=== PATIENT | female | born 1970 | race Caucasian/White ===

== ENCOUNTER → 2018-05-15 | Outpatient (CLI) | payer MEDICAID ==
--- NOTE | 2018-05-18 11:26 | MM ---
Reason for exam: screening (asymptomatic). Last mammogram was performed 5 years and 11 months ago. History: Patient is postmenopausal. Benign right mammotome panel of the right breast, July 01, 2012. Retro-pectoral silicone gel implants in both breasts, 2012. Right Breast Aspiration of the right breast, 2008. Took hormonal contraceptives for 3 months beginning at age 34. Physical Findings: A clinical breast exam by your physician is recommended on an annual basis and results should be correlated with mammographic findings. MG Screening Mammo Implant/CAD Bilateral CC, MLO, and ID view(s) were taken. Prior study comparison: June 19, 2012, [facility] DIGITAL RIGHT MAMMOGRAM w/CAD. June 17, 2012, bilateral digital screening mammo w/CAD. Finding: There is an equal density (isodense), indistinct round mass located 3 cm from the nipple in the upper outer quadrant, middle position of the left breast, may have peripheral calcifications. Bilateral implants. New finding since June 19, 2012 and June 17, 2012. ASSESSMENT: Incomplete: need additional imaging evaluation, BI-RAD 0 RECOMMENDATION: Special view mammogram of the left breast. If lesion persists on supplemental views, image directed ultrasound is recommended. [facility] will attempt to contact patient to return for supplemental views and ultrasound if indicated.
== END | disposition home or self-care (01) ==
LOC: RADMAMWWP 07:07
PROVIDERS: ATTEND Obstetrics & Gynecology
DX: Z12.31 Encounter for screening mammogram for malignant neoplasm of breast (principal); Z98.82 Breast implant status
CPT/HCPCS: 77067

== ENCOUNTER → 2018-05-19 | Outpatient (CLI) | payer MEDICAID ==
--- NOTE | 2018-05-19 11:37 | MM ---
Reason for exam: additional evaluation requested from abnormal screening. Last mammogram was performed less than 1 month ago. History: Patient is postmenopausal. Benign right mammotome panel of the right breast, July 01, 2012. Retro-pectoral silicone gel implants in both breasts, 2012. Right Breast Aspiration of the right breast, 2008. Took hormonal contraceptives for 3 months beginning at age 34. Physical Findings: Patient refused breast exam. MG Work Up Asaf W/Imp W/CAD L CC with magnification, ML with magnification, and ML view(s) were taken of the left breast. Prior study comparison: May 15, 2018, bilateral MG screening mammo implant/CAD. June 19, 2012, [facility] DIGITAL RIGHT MAMMOGRAM w/CAD. The breast tissue is heterogeneously dense. This may lower the sensitivity of mammography. Finding: There is a typically benign equal density (isodense), obscured round mass located 3 cm from the nipple in the upper outer quadrant, middle position of the left breast. This has the appearance of a calcifying sphere. Short term follow up recommended. This can be after implant removal. These results were verbally communicated with the patient and result sheet given to the patient on 05/19/18. ASSESSMENT: Probably benign, BI-RAD 3 RECOMMENDATION: Follow-up diagnostic mammogram of the left breast in 6 months.
== END | disposition home or self-care (01) ==
LOC: RADMAMWWP 10:00
PROVIDERS: ATTEND Obstetrics & Gynecology
DX: R92.8 Other abnormal and inconclusive findings on diagnostic imaging of breast (principal)
CPT/HCPCS: 77066

== ENCOUNTER 2018-06-21 01:26 | Emergency (ER) | payer MEDICAID ==
[2018-06-21] MEDS ORDERED: SODIUM CHLORIDE 0.9% 1,000 ML IV STA (01:31)
[2018-06-21 01:37] LABS: Glucose,Whole Blood 114 mg/dL (75-99)
[2018-06-21 01:42] VITALS: TEMP 98.8
--- NOTE | 2018-06-21 02:26 | CT ---
EXAMINATION TYPE: CT brain dale last DATE OF EXAM: 06/21/2018 COMPARISON: None HISTORY: fall CT DLP: 937.3 mGycm Automated exposure control for dose reduction was used. TECHNIQUE: CT scan of the head and cervical spine are performed without contrast. FINDINGS: There are a few scattered small foci of increased density in the right posterior frontal lobe. The largest measures 6 mm and consistent with focal parenchymal hemorrhage. There is no mass ef fect. There is no midline shift. Ventricles of normal size. There is some mucosal thickening in the e thmoid maxillary and sphenoid sinuses. The calvarium is intact. Cervical vertebra have normal alignment. There is mild spondylotic change in the cervical spine at C5 -6 C6-7. Facet joints are intact. Skull base is intact. There is no evidence of a fracture. IMPRESSION: Small areas of focal parenchymal hemorrhage in the right posterior frontal lobe appear acute. No mass effect. Sinusitis. Minor spondylotic changes in the cervical spine. No fracture.
--- NOTE | 2018-06-21 02:29 | XR ---
EXAMINATION TYPE: XR chest 1V portable DATE OF EXAM: 06/21/2018 COMPARISON: NONE HISTORY: Trauma chest pain TECHNIQUE: Single frontal view of the chest is obtained. FINDINGS: Heart and mediastinum are normal. Lungs are clear. Diaphragm is normal. There are chest le ads. Bony thorax is intact. IMPRESSION: Normal chest no pneumothorax.
--- NOTE | 2018-06-21 02:29 | CT ---
EXAMINATION TYPE: CT facial bones wo con DATE OF EXAM: 06/21/2018 COMPARISON: None HISTORY: fall CT DLP: 937.3 mGycm Automated exposure control for dose reduction was used. TECHNIQUE: CT scan of the sinuses is performed without contrast, axial images are obtained, coronal r eformatted images are also reviewed. FINDINGS: The mandibular ring is intact. The temporomandibular joints are intact. There is soft tissu e air anterior to the right maxilla. There is fracture of the anterior wall of the right maxillary si nus. There is fluid level in the right maxillary sinus. The nasal bone is intact. The temporal bones are intact. There is no evidence of a blowout fracture. The orbital margins are intact. There is some mucosal thickening in the ethmoid sinus. There is no evidence of retro-orbital mass. IMPRESSION: There is acute hemorrhage in the right maxillary sinus. There is similar probable acute t raumatic hemorrhage in the sphenoid and ethmoid sinus. There is nondisplaced fracture anterior and la teral wall of the right maxillary sinus. No evidence of blowout fracture.
--- NOTE | 2018-06-21 02:34 | XR ---
EXAMINATION TYPE: XR pelvis AP view DATE OF EXAM: 06/21/2018 COMPARISON: NONE HISTORY: Trauma TECHNIQUE: Single view FINDINGS: Pelvic ring is intact. Proximal most femurs and hip joints appear normal. Abdominal gas pat tern is fairly normal. IMPRESSION: No acute abnormality of the pelvis. No fracture seen. The results of this exam the chest x-ray the facial bone x-rays and the head CT scan and cervical spi ne CT scan were discussed with the ER physician at 2:30 AM.
[2018-06-21 02:35] LABS: Basophils % (A) 0 %; Eosinophils # (A) 0.1 k/uL (0-0.7); Eosinophils % (A) 1 %; HCT 40.5 % (34.0-46.0); HGB 13.2 gm/dL (11.4-16.0); Lymphocytes # (A) 1.1 k/uL (1.0-4.8); Lymphocytes % (A) 6 %; MCH 29.2 pg (25.0-35.0); MCHC 32.5 g/dL (31.0-37.0); MCV 89.6 fL (80.0-100.0); Monocytes % (A) 5 %; Neutrophils # (A) 16.1 k/uL (1.3-7.7); Neutrophils % (A) 87 %; Platelet Count 376 k/uL (150-450); RBC 4.52 m/uL (3.80-5.40); RDW 13.5 % (11.5-15.5); WBC 18.4 k/uL (3.8-10.6)
[2018-06-21 02:43] LABS: ALT 131 U/L (9-52); AST 134 U/L (14-36); Albumin 3.9 g/dL (3.5-5.0); Alcohol <10 mg/dL; Alkaline Phosphatase 187 U/L (38-126); Anion Gap 8 mmol/L; Blood Urea Nitrogen 8 mg/dL (7-17); Calcium 9.6 mg/dL (8.4-10.2); Carbon Dioxide 27 mmol/L (22-30); Chloride 104 mmol/L (98-107); Glucose 122 mg/dL (74-99); Potassium 4.1 mmol/L (3.5-5.1); Sodium 139 mmol/L (137-145); Total Bilirubin 0.4 mg/dL (0.2-1.3); Total Protein 6.9 g/dL (6.3-8.2)
--- NOTE | 2018-06-21 02:50 | ED ---
Fall HPI - General Chief Complaint: Fall Stated Complaint: Fall/Head Injury Time Seen by Provider: 06/21/18 01:30 Source: family, EMS Mode of arrival: EMS - History of Present Illness Initial Comments: Garry is a previously healthy 47-year-old female who is brought to the ED today via EMS for evaluation of headache injury and altered mental status. History is provided by EMS and the patient's as the patient is very confused. Per the patient has been the patient has been in her usual state of health, 2 weeks ago she had an elective breast implant removal surgery. The patient is usually naturopathic and opposed to taking medications, in an attempt to cleanse her body of anesthesia she is doing a cleanse which consists of drinking celery juice and eating apples. reports she's been doing well , this evening he heard a crash within the home, thinking that it was his dogs he got up to check on what it was. He found his facedown in their bathroom on the tile floor. He reports that she was moaning and noted that she has bleeding from her nose so he called 911. EMS reports that the patient has been agitated and bad of, she is able to speak clearly and state her name though she is very confused and not cooperative with exam. Patient provides no meaningful history. - Related Data Allergies Allergy/AdvReac Type Severity Reaction Status Date / Time No Known Allergies Allergy Verified 06/21/18 01:50 Review of Systems ROS Statement: Those systems with pertinent positive or pertinent negative responses have been documented in the HPI. Limitations: ROS unobtainable due to patients medical condition (Confusion) Past Medical History Past Medical History: No Reported History History of Any Multi-Drug Resistant Organisms: None Reported Additional Past Surgical History / Comment(s): Breast implant removal 05/2018 Smoking Status: Never smoker Past Alcohol Use History: None Reported Past Drug Use History: None Reported General Exam - General Exam Comments Initial Comments: GENERAL: Patient is well-developed and well-nourished. Patient is nontoxic and well-hydrated and is in no distress. HENT: Contusion of right periorbital region, dried blood in the naris TMs normal bilaterally no hemotympanum Cervical collar in place EYES: Pupils 4 mm and reactive bilaterally The sclera were anicteric and conjunctiva were pink and moist. PULMONARY: Unlabored respirations. Good breath sounds bilaterally. No audible rales rhonchi or wheezing was noted. CARDIOVASCULAR: There is a regular rate and rhythm without any murmurs gallops or rubs. ABDOMEN: Soft and nontender with normal bowel sounds. SKIN: Skin is clear with no lesions or rashes and otherwise unremarkable. Well-healing surgical incisions on bilateral breasts with BRYCE drains in place with serosanguineous drainage NEUROLOGIC: Patient resting with her eyes closed but wakes to verbal stimuli, oriented to person, able to identify that she is in a hospital, able to identify that it is May, confused about events leading to hospitalization Agitated and yelling at staff with any examination she is not cooperative Moving all extremities MUSCULOSKELETAL: Normal extremities with adequate strength and full range of motion. No lower extremity swelling or edema. No calf tenderness. LYMPHATICS: No significant lymphadenopathy is noted PSYCHIATRIC: Agitated Limitations: no limitations Limitations: altered mental status Course Vital Signs 06/21/18 01:31 Temperature 98.8 F Pulse Rate 101 H Respiratory 18 Rate Blood Pressure 101/58 O2 Sat by Pulse 100 Oximetry Medical Decision Making - Medical Decision Making The patient was seen and evaluated, history was obtained from EMS and This is a previously healthy 47-year-old female on no anticoagulant or antiplatelet agents who had a fall at home, it was unwitnessed and certain if it was syncopal or mechanical in nature Patient fell forward striking her face on a tile floor has been altered since that time On exam the patient is in a c-collar, she is agitated and not cooperating with exam. There is obvious trauma to the right face, dried blood in the nares, TMs normal no hemotympanum High suspicion for intracranial bleed Labs and imaging were ordered Computed tomography scan reveals a right frontal intraparenchymal hemorrhage measuring approximately 6 mm these results were discussed with Dr. Rickie Menjivar radiology confirms Computed tomography scan also reveals maxillary sinus fracture with free air in the surrounding tissue and blood in the sinuses Patient care was discussed with Dr Jones at [facility], due to their facility being at capacity and having no available ICU beds they recommended transfer to a trauma facility with available beds. Patient care was discussed with Dr. Lombardo at [facility] who accepts the transfer - Lab Data Result diagrams: 06/21/18 01:54 06/21/18 01:54 Lab Results 06/21/18 06/21/1818 Range/Units 01:33 01:54 01:54 WBC 18.4 H (3.8-10.6) k/uL RBC 4.52 (3.80-5.40) m/uL Hgb 13.2 (11.4-16.0) gm/dL Hct 40.5 (34.0-46.0) % MCV 89.6 (80.0-100.0) fL MCH 29.2 (25.0-35.0) pg MCHC 32.5 (31.0-37.0) g/dL RDW 13.5 (11.5-15.5) % Plt Count 376 (150-450) k/uL Neutrophils % 87 % Lymphocytes % 6 % Monocytes % 5 % Eosinophils % 1 % Basophils % 0 % Neutrophils # 16.1 H (1.3-7.7) k/uL Lymphocytes # 1.1 (1.0-4.8) k/uL Monocytes # 1.0 (0-1.0) k/uL Eosinophils # 0.1 (0-0.7) k/uL Basophils # 0.0 (0-0.2) k/uL Sodium 139 (137-145) mmol/L Potassium 4.1 (3.5-5.1) mmol/L Chloride 104 (98-107) mmol/L Carbon Dioxide 27 (22-30) mmol/L Anion Gap 8 mmol/L BUN 8 (7-17) mg/dL Creatinine 0.76 (0.52-1.04) mg/dL Est GFR (CKD-EPI)AfAm >90 (>60 ml/min/1.73 sqM) Est GFR (CKD-EPI)NonAf >90 (>60 ml/min/1.73 sqM) Glucose 122 H (74-99) mg/dL POC Glucose (mg/dL) 114 H (75-99) mg/dL POC Glu [employer] Developer ID Josr, Shayna Calcium 9.6 (8.4-10.2) mg/dL Total Bilirubin 0.4 (0.2-1.3) mg/dL AST 134 H (14-36) U/L ALT 131 H (9-52) U/L Alkaline Phosphatase 187 H (38-126) U/L Total Protein 6.9 (6.3-8.2) g/dL Albumin 3.9 (3.5-5.0) g/dL Serum Alcohol <10 mg/dL Disposition Clinical Impression: Fall, Traumatic intraparenchymal hemorrhage Disposition: OTHER INSTITUTION NOT DEFINED Condition: Serious Is patient prescribed a controlled substance at d/c from ED?: No Referrals: None,Stated [Primary Care Provider] - 1-2 days - Out of Hospital Transfer - Req. Specs Out of Hospital Transfer - Requested Specifics: Other Emergency Center ([facility])
[2018-06-21 02:52] LABS: INR 0.9 (<1.2); Prothrombin Time 9.7 sec (9.0-12.0)
[2018-06-21 02:55] LABS: Creatine Kinase 74 U/L (30-135)
[2018-06-21 03:06] LABS: Creatine Kinase MB 1.2 ng/mL (0.0-2.4); Troponin I <0.012 ng/mL (0.000-0.034)
[2018-06-21 03:09] VITALS: BP 114/58; PULSE 79; RESP 16
== END 2018-06-21 03:26 | disposition short-term general hospital (02) ==
LOC: EC 01:26
DX: S06.349A Traumatic hemorrhage of right cerebrum with loss of consciousness of unspecified duration, initial encounter (principal); S02.40CA Maxillary fracture, right side, initial encounter for closed fracture; S00.11XA Contusion of right eyelid and periocular area, initial encounter; R45.1 Restlessness and agitation; Z98.86 Personal history of breast implant removal; W01.198A Fall on same level from slipping, tripping and stumbling with subsequent striking against other object, initial encounter; Y92.002 Bathroom of unspecified non-institutional (private) residence as the place of occurrence of the external cause
CPT/HCPCS: 36415; 70450; 70486; 71045; 72125; 72170; 80053; 80320; 82550; 82553; 84484; 85025; 85610; 85730; 86850; 86900; 86901; 93005; 99285

== ENCOUNTER 2023-08-07 15:10 | Emergency (ER) | payer MEDICAID, OTHER ==
--- NOTE | 2023-08-07 15:26 | ED ---
General Adult HPI - General Stated complaint: back pain Time Seen by Provider: 08/07/23 15:20 Source: patient, RN notes reviewed Mode of arrival: ambulatory Limitations: no limitations - History of Present Illness Initial comments: 53-year-old female presents emergency department chief complaint of joint pain. Patient has rheumatoid arthritis. She states she started having issues with it over the last couple weeks after having a GI illness. She states she had no fevers or chills she states she normally is well-controlled but due to recent illnesses has aggravated. She does not see a firer locomotive does not any rheumatological medications. Patient states she saw her PCP who reported on NSAIDs. Patient states is not helping and she called back for further help and states that she was advised to come to emergency department. She states she prefers not to be placed on steroids. She states she normally does not take any medications she is well-controlled dietary with all of her conditions. - Related Data Previous Rx's Medication Instructions Recorded HYDROcodone/APAP 5-325MG [Mangham 5] 1 each PO Q6HR PRN #20 tab 08/07/23 Allergies Allergy/AdvReac Type Severity Reaction Status Date / Time No Known Allergies Allergy Verified 08/07/23 15:43 Review of Systems ROS Statement: Those systems with pertinent positive or pertinent negative responses have been documented in the HPI. ROS Other: All systems not noted in ROS Statement are negative. Past Medical History Past Medical History: No Reported History History of Any Multi-Drug Resistant Organisms: None Reported Additional Past Surgical History / Comment(s): Breast implant removal 05/2018 Past Alcohol Use History: None Reported Past Drug Use History: None Reported General Exam General appearance: alert, in no apparent distress Head exam: Present: atraumatic, normocephalic, normal inspection Eye exam: Present: normal appearance, PERRL, EOMI. Absent: scleral icterus, conjunctival injection, periorbital swelling ENT exam: Present: normal exam, normal oropharynx, mucous membranes moist Neck exam: Present: normal inspection, full ROM. Absent: tenderness, meningismus, lymphadenopathy Respiratory exam: Present: normal lung sounds bilaterally. Absent: respiratory distress, wheezes, rales, rhonchi, stridor Cardiovascular Exam: Present: regular rate, normal rhythm, normal heart sounds. Absent: systolic murmur, diastolic murmur, rubs, gallop, clicks GI/Abdominal exam: Present: soft, normal bowel sounds. Absent: distended, tenderness, guarding, rebound, rigid Extremities exam: Present: other (Hand deformities are noted, no erythematous joints) Back exam: Present: full ROM, tenderness Neurological exam: Present: alert, oriented X3, CN II-XII intact Course Vital Signs 08/07/23 15:41 Temperature 98 F Pulse Rate 80 Respiratory 18 Rate Blood Pressure 132/78 O2 Sat by Pulse 98 Oximetry Medical Decision Making - Medical Decision Making Was pt. sent in by a medical professional or institution (, YANELI, FRONT END DEVELOPER, urgent care, hospital, or custodial...) When possible be specific @ -No Did you speak to anyone other than the patient for history (EMS, parent, family, police, friend...)? What history was obtained from this source @ -No Did you review nursing and triage notes (agree or disagree)? Why? @ -I reviewed and agree with nursing and triage notes Were old charts reviewed (outside hosp., previous admission, EMS record, old EKG, old radiological studies, urgent care reports/EKG's, custodial records)? Report findings @ -No old charts were reviewed Differential Diagnosis (chest pain, altered mental status, abdominal pain women, abdominal pain men, vaginal bleeding, weakness, fever, dyspnea, syncope, headache, dizziness, GI bleed, back pain, seizure, CVA, palpatations, mental health, musculoskeletal)? @ -[Joint pain, rheumatoid arthritis EKG interpreted by me (3pts min.). @ -None X-rays interpreted by me (1pt min.). @ -[None done CT interpreted by me (1pt min.). @ -None done U/S interpreted by me (1pt. min.). @ -None done What testing was considered but not performed or refused? (CT, X-rays, U/S, labs)? Why? @ -None What meds were considered but not given or refused? Why? @ -None Did you discuss the management of the patient with other professionals (professionals i.e. YANELI Lee, FRONT END DEVELOPER, lab, RT, psych nurse, sr. social media & mobile manager, research animal facility supervisor, teacher, aerospace engineer officer armament, casework specialist)? Give summary @ -No Was smoking cessation discussed for >3mins.? @ -No Was critical care preformed (if so, how long)? @ -No Were there social determinants of health that impacted care today? How? (Homelessness, low income, unemployed, alcoholism, drug addiction, transportation, low edu. Level, literacy, decrease access to med. care, half-way, rehab)? @ -No Was there de-escalation of care discussed even if they declined (Discuss DNR or withdrawal of care, Hospice)? DNR status @ -No What co-morbidities impacted this encounter? (DM, HTN, Smoking, COPD, CAD, Cancer, CVA, ARF, Chemo, Hep., AIDS, mental health diagnosis, sleep apnea, morbid obesity)? @ -None Was patient admitted / discharged? Hospital course, mention meds given and route, prescriptions, significant lab abnormalities, going to OR and other pertinent info. @ -[Discharge patient was offered steroids patient Morteza prefers not to take any steroids. She did ask for pain management, rheumatology information. Patient was given analgesics will be discharged in stable condition. Undiagnosed new problem with uncertain prognosis? @ -No Drug Therapy requiring intensive monitoring for toxicity (Heparin, Nitro, Insulin, Cardizem)? @ -No Were any procedures done? @ -No Diagnosis/symptom? @ -[Joint pain, rheumatoid arthritis Acute, or Chronic, or Acute on Chronic? @ -Acute on chronic Uncomplicated (without systemic symptoms) or Complicated (systemic symptoms)? @ -[Uncomplicated Side effects of treatment? @ -[No Exacerbation, Progression, or Severe Exacerbation? @ -No Poses a threat to life or bodily function? How? (Chest pain, [place], MA, pneumonia, PE, COPD, DKA, ARF, appy, cholecystitis, CVA, Diverticulitis, Homicidal, Suicidal, threat to staff... and all critical care pts) @ -No Disposition Clinical Impression: Rheumatoid arthritis Disposition: HOME SELF-CARE Condition: Stable Instructions (If sedation given, give patient instructions): Rheumatoid Arthritis (ED) Additional Instructions: Please return to the Emergency Department if symptoms worsen or any other concerns. Prescriptions: HYDROcodone/APAP 5-325MG [[place] 5] 1 each PO Q6HR PRN #20 tab PRN Reason: Pain Is patient prescribed a controlled substance at d/c from ED?: Yes When asked, does pt state using other controlled substances?: No If prescribed controlled substance>3 days was MAPS reviewed?: Yes If opioid is for acute pain is fill amount 7 days or less?: Yes If Rx opioid, was Start Talking consent form obtained?: Yes Referrals: Tonya Mcnally MD [Primary Care Provider] - 1-2 days [facility] [NON-STAFF] - 1-2 days Radha Zaidi MD [STAFF PHYSICIAN] - 1-2 days Time of Disposition: 15:25
[2023-08-07 16:04] VITALS: BP 132/78; PULSE 80; RESP 18; TEMP 98
== END 2023-08-07 15:55 | disposition home or self-care (01) ==
LOC: EC 15:10
DX: M06.9 Rheumatoid arthritis, unspecified (principal)
CPT/HCPCS: 99282

== ENCOUNTER 2023-08-13 09:46 | Observation (INO) | payer OTHER ==
[2023-08-13] MEDS: HYDROmorphone 0.5 MG/0.5 ML SYRINGE IVP STA ×2 (11:27→14:29)
[2023-08-13] MEDS: ONDANSETRON 4 MG/2 ML VIAL IVP STA (11:28)
[2023-08-13] MEDS: SODIUM CHLORIDE 0.9% 1,000 ML IV ONE (11:28)
[2023-08-13 11:49] LABS: ALT 42 U/L (4-34); AST 46 U/L (14-36); African American GFR (CKD) >90 (>60 ml/min/1.73 sqM); Alkaline Phosphatase 170 U/L (38-126); Anion Gap 11 mmol/L; Blood Urea Nitrogen 6 mg/dL (7-17); C Reactive Protein 0.8 mg/dL (<1.0); Calcium 10.4 mg/dL (8.4-10.2); Carbon Dioxide 26 mmol/L (22-30); Chloride 104 mmol/L (98-107); Glucose 100 mg/dL (74-99); Non-African American GFR(CKD) >90 (>60 ml/min/1.73 sqM); Sodium 141 mmol/L (137-145); Total Bilirubin 0.6 mg/dL (0.2-1.3); Total Protein 9.9 g/dL (6.3-8.2)
--- NOTE | 2023-08-13 11:50 | ED ---
General Adult HPI - General Chief complaint: Back Pain/Injury Stated complaint: BACK PAIN Time Seen by Provider: 08/13/23 10:01 Source: patient, RN notes reviewed Mode of arrival: ambulatory Limitations: no limitations - History of Present Illness Initial comments: 53-year-old female presents emergency department with chief complaint of pain. Patient states she has rheumatoid arthritis she had some URI symptoms a few weeks ago causing her to have an exacerbation of her rheumatoid arthritis. She states she was seen here and was given analgesics but states that did not help like usual. Patient states that she still feels like she has flulike symptoms. She denies any nausea vomit diarrhea constipation. Patient states she does have some pain in her back wraps under her chest she occasionally has night sweats and shortness of breath. - Related Data Home Medications Medication Instructions Recorded Confirmed No Known Home Medications 08/13/23 08/13/23 Allergies Allergy/AdvReac Type Severity Reaction Status Date / Time No Known Allergies Allergy Verified 08/13/23 12:42 Review of Systems ROS Statement: Those systems with pertinent positive or pertinent negative responses have been documented in the HPI. ROS Other: All systems not noted in ROS Statement are negative. Past Medical History Past Medical History: No Reported History History of Any Multi-Drug Resistant Organisms: None Reported Additional Past Surgical History / Comment(s): Breast implant removal 05/2018 Past Alcohol Use History: None Reported Past Drug Use History: None Reported General Exam Limitations: no limitations General appearance: alert, in no apparent distress Head exam: Present: atraumatic, normocephalic, normal inspection Eye exam: Present: normal appearance, PERRL, EOMI. Absent: scleral icterus, conjunctival injection, periorbital swelling ENT exam: Present: normal exam, normal oropharynx, mucous membranes moist Neck exam: Present: normal inspection, full ROM. Absent: tenderness, meningismus, lymphadenopathy Respiratory exam: Present: normal lung sounds bilaterally. Absent: respiratory distress, wheezes, rales, rhonchi, stridor Cardiovascular Exam: Present: normal rhythm, tachycardia, normal heart sounds. Absent: systolic murmur, diastolic murmur, rubs, gallop, clicks GI/Abdominal exam: Present: soft, normal bowel sounds. Absent: distended, tenderness, guarding, rebound, rigid Course Vital Signs 08/13/23 08/13/23 09:50 10:32 Temperature 97.6 F Pulse Rate 123 H 102 H Respiratory 18 19 Rate Blood Pressure 156/70 133/75 O2 Sat by Pulse 100 100 Oximetry EKG Findings - EKG Comments: EKG Findings:: EKG performed at 11: 13 sinus rhythm with rate 92 OK 133 QRS 77 QT/QTc 367/417 - EKG Results: EKG: interpreted by SHAYY Medical Decision Making - Medical Decision Making Was pt. sent in by a medical professional or institution (, PA, FIBER MACHINE TENDER, urgent care, hospital, or [facility]...) When possible be specific @ -No Did you speak to anyone other than the patient for history (EMS, parent, family, police, friend...)? What history was obtained from this source @ -No Did you review nursing and triage notes (agree or disagree)? Why? @ -I reviewed and agree with nursing and triage notes Were old charts reviewed (outside hosp., previous admission, EMS record, old EKG, old radiological studies, urgent care reports/EKG's, [facility] records)? Report findings @ -[Reviewed recent ER visit Differential Diagnosis (chest pain, altered mental status, abdominal pain women, abdominal pain men, vaginal bleeding, weakness, fever, dyspnea, syncope, headache, dizziness, GI bleed, back pain, seizure, CVA, palpatations, mental health, musculoskeletal)? @ -Differential Back Pain: Strain, zoster, cauda equina syndrome, epidural abscess, vertebral osteomyelitis, discitis, fracture, subluxation, disc herniation, DJD, spinal stenosis, dissection, AAA, pancreatitis, peptic ulcer disease, pyelonephritis, kidney stone, this is not meant to be an all-inclusive list. EKG interpreted by me (3pts min.). @ -As above X-rays interpreted by me (1pt min.). @ -None done CT interpreted by me (1pt min.). @ -[CT angio chest showing mediastinal and bilateral axillary lymphadenopathy concerning for lymphoma no PE U/S interpreted by me (1pt. min.). @ -None done What testing was considered but not performed or refused? (CT, X-rays, U/S, labs)? Why? @ -None What meds were considered but not given or refused? Why? @ -None Did you discuss the management of the patient with other professionals (professionals i.e. , PA, FIBER MACHINE TENDER, lab, RT, psych nurse, social media analyst, edge roller, teacher, accounts officer, manager of case)? Give summary @ -MH for admission with oncology evaluation] Was smoking cessation discussed for >3mins.? @ -No Was critical care preformed (if so, how long)? @ -No Were there social determinants of health that impacted care today? How? (Homelessness, low income, unemployed, alcoholism, drug addiction, transportation, low edu. Level, literacy, decrease access to med. care, care home, rehab)? @ -No Was there de-escalation of care discussed even if they declined (Discuss DNR or withdrawal of care, Hospice)? DNR status @ -No What co-morbidities impacted this encounter? (DM, HTN, Smoking, COPD, CAD, Cancer, CVA, ARF, Chemo, Hep., AIDS, mental health diagnosis, sleep apnea, morbid obesity)? @ - rheumatoid arthritis Was patient admitted / discharged? Hospital course, mention meds given and route, prescriptions, significant lab abnormalities, going to OR and other pertinent info. @ -Admitted patient will have oncology, otology evaluation, analgesic control, pulmonology evaluation for concerning lymphadenopathy Undiagnosed new problem with uncertain prognosis? @ -[Yes Drug Therapy requiring intensive monitoring for toxicity (Heparin, Nitro, Insulin, Cardizem)? @ -No Were any procedures done? @ -No Diagnosis/symptom? @ -[Mediastinal lymphadenopathy, axillary lymphadenopathy, back pain Acute, or Chronic, or Acute on Chronic? @ -Acute Uncomplicated (without systemic symptoms) or Complicated (systemic symptoms)? @ -[Complicated Side effects of treatment? @ -[No Exacerbation, Progression, or Severe Exacerbation? @ -No Poses a threat to life or bodily function? How? (Chest pain, [place], [place], pneumonia, PE, COPD, DKA, ARF, appy, cholecystitis, CVA, Diverticulitis, Homicidal, Suicidal, threat to staff... and all critical care pts) @ -Possible underlying lymphoma - Lab Data Result diagrams: 08/13/23 11:16 08/13/23 11:16 Lab Results 08/13/23 08/13/23 08/13/23 Range/Units 11:16 11:16 11:16 WBC 8.3 (3.8-10.6) k/uL RBC 5.24 (3.80-5.40) m/uL Hgb 15.4 (11.4-16.0) gm/dL Hct 46.3 H (34.0-46.0) % MCV 88.4 (80.0-100.0) fL MCH 29.4 (25.0-35.0) pg MCHC 33.2 (31.0-37.0) g/dL RDW 12.2 (11.5-15.5) % Plt Count 544 H (150-450) k/uL MPV 7.4 Neutrophils % 77 % Lymphocytes % 14 % Monocytes % 6 % Eosinophils % 1 % Basophils % 1 % Neutrophils # 6.4 (1.3-7.7) k/uL Lymphocytes # 1.2 (1.0-4.8) k/uL Monocytes # 0.5 (0-1.0) k/uL Eosinophils # 0.1 (0-0.7) k/uL Basophils # 0.0 (0-0.2) k/uL D-Dimer 1.04 H (<0.60) mg/L FEU Sodium 141 (137-145) mmol/L Potassium 5.1 (3.5-5.1) mmol/L Chloride 104 (98-107) mmol/L Carbon Dioxide 26 (22-30) mmol/L Anion Gap 11 mmol/L BUN 6 L (7-17) mg/dL Creatinine 0.48 L (0.52-1.04) mg/dL Est GFR (CKD-EPI)AfAm >90 (>60 ml/min/1.73 sqM) Est GFR (CKD-EPI)NonAf >90 (>60 ml/min/1.73 sqM) Glucose 100 H (74-99) mg/dL Calcium 10.4 H (8.4-10.2) mg/dL Magnesium 2.0 (1.6-2.3) mg/dL Total Bilirubin 0.6 (0.2-1.3) mg/dL AST 46 H (14-36) U/L ALT 42 H (4-34) U/L Alkaline Phosphatase 170 H (38-126) U/L Troponin I (0.000-0.034) ng/mL C-Reactive Protein 0.8 (<1.0) mg/dL Total Protein 9.9 H (6.3-8.2) g/dL Albumin 5.0 (3.5-5.0) g/dL Influenza Type A (PCR) (Not Detectd) Influenza Type B (PCR) (Not Detectd) RSV (PCR) (Not Detectd) SARS-CoV-2 (PCR) (Not Detectd) 08/13/23 08/13/23 08/13/23 Range/Units 11:16 11:16 13:50 WBC (3.8-10.6) k/uL RBC (3.80-5.40) m/uL Hgb (11.4-16.0) gm/dL Hct (34.0-46.0) % MCV (80.0-100.0) fL MCH (25.0-35.0) pg MCHC (31.0-37.0) g/dL RDW (11.5-15.5) % Plt Count (150-450) k/uL MPV Neutrophils % % Lymphocytes % % Monocytes % % Eosinophils % % Basophils % % Neutrophils # (1.3-7.7) k/uL Lymphocytes # (1.0-4.8) k/uL Monocytes # (0-1.0) k/uL Eosinophils # (0-0.7) k/uL Basophils # (0-0.2) k/uL D-Dimer (<0.60) mg/L FEU Sodium (137-145) mmol/L Potassium (3.5-5.1) mmol/L Chloride (98-107) mmol/L Carbon Dioxide (22-30) mmol/L Anion Gap mmol/L BUN (7-17) mg/dL Creatinine (0.52-1.04) mg/dL Est GFR (CKD-EPI)AfAm (>60 ml/min/1.73 sqM) Est GFR (CKD-EPI)NonAf (>60 ml/min/1.73 sqM) Glucose (74-99) mg/dL Calcium (8.4-10.2) mg/dL Magnesium (1.6-2.3) mg/dL Total Bilirubin (0.2-1.3) mg/dL AST (14-36) U/L ALT (4-34) U/L Alkaline Phosphatase (38-126) U/L Troponin I 0.018 <0.012 (0.000-0.034) ng/mL C-Reactive Protein (<1.0) mg/dL Total Protein (6.3-8.2) g/dL Albumin (3.5-5.0) g/dL Influenza Type A (PCR) Not Detected (Not Detectd) Influenza Type B (PCR) Not Detected (Not Detectd) RSV (PCR) Not Detected (Not Detectd) SARS-CoV-2 (PCR) Not Detected (Not Detectd) Disposition Clinical Impression: Mediastinal lymphadenopathy, Axillary lymphadenopathy, Back pain Disposition: ADMITTED IP TO THIS HOSP Condition: Fair Referrals: None,Stated [REFERRING] - 1-2 days Time of Disposition: 14:35
[2023-08-13 11:51] LABS: Basophils % (A) 1 %; Eosinophils # (A) 0.1 k/uL (0-0.7); Eosinophils % (A) 1 %; HCT 46.3 % (34.0-46.0); HGB 15.4 gm/dL (11.4-16.0); Lymphocytes # (A) 1.2 k/uL (1.0-4.8); Lymphocytes % (A) 14 %; MCH 29.4 pg (25.0-35.0); MCHC 33.2 g/dL (31.0-37.0); MCV 88.4 fL (80.0-100.0); Mean Platelet Volume 7.4; Monocytes # (A) 0.5 k/uL (0-1.0); Monocytes % (A) 6 %; Neutrophils # (A) 6.4 k/uL (1.3-7.7); Neutrophils % (A) 77 %; Platelet Count 544 k/uL (150-450); Potassium 5.1 mmol/L (3.5-5.1); RBC 5.24 m/uL (3.80-5.40); RDW 12.2 % (11.5-15.5); WBC 8.3 k/uL (3.8-10.6)
--- NOTE | 2023-08-13 12:43 | CT ---
EXAMINATION TYPE: CT chest angio for PE DATE OF EXAM: 08/13/2023 COMPARISON: None available. HISTORY: Back pain for one week with elevated d-dimer. CT DLP: 219.4 mGycm Automated exposure control for dose reduction was used. CONTRAST: CT Chest for pulmonary embolism performed with with IV Contrast, patient injected with 65ml mL of Iso roly 370. FINDINGS: LUNGS: The lungs are grossly clear, there is no concerning parenchymal mass or nodule identified. T here is no pleural effusion or pneumothorax seen. The tracheobronchial tree is patent. MEDIASTINUM: There is a cluster of prominent lymph nodes within the anterior mediastinum that does no t have the typical appearance of a residual thymus. Enlarged bilateral axillary lymph nodes are also seen that measure up to 1.7 cm in short axis diameter. There is no hilar adenopathy seen. OTHER: No additional significant abnormality is seen. IMPRESSION: 1. No evidence of pulmonary embolus in. 2. No evidence of thoracic aortic aneurysm or dissection. 3. Prominent lymph nodes and slightly enlarged lymph nodes within the mediastinal region and axillary regions bilaterally. The abnormality in the anterior mediastinum does not clearly appear to represen t residual thymus as it is a somewhat atypical appearance and lymphoma would potentially be in the di fferential diagnosis. PET/CT would help further assess and is recommended. 4. No acute findings otherwise seen. Follow-up recommendations for incidental pulmonary nodules are per [employer] or [employer].
--- NOTE | 2023-08-13 13:59 | US ---
EXAMINATION TYPE: US gallbladder DATE OF EXAM: 08/13/2023 COMPARISON: NONE CLINICAL INDICATION: Female, 53 years old with history of Transaminitis; Transaminitis. Hx tummy tuck . TECHNIQUE: Multiple sonographic images of the right upper quadrant are obtained. FINDINGS: EXAM MEASUREMENTS: Liver Length: 10.2 cm Gallbladder Wall: 0.20 cm CBD: 0.73 cm Right Kidney: 9.6 x 4.3 x 3.9 cm NONDESTRUCTIVE TESTER NOTES: Limited due to overlying bowel gas. Pancreas: Duct measures 0.18 cm, within normal limits. Limited visibility of tail. Liver: Appears wnl Gallbladder: Multiple layering echogenic foci with posterior shadowing seen within. *Gallbladder appears distended measuring 9.7 cm in length and 5.1 cm in width. No wall thickening or surrounding f luid. Evidence for sonographic Joe's sign: No CBD: *Mildly dilated. Right Kidney: Small extrarenal pelvis. No calyceal dilatation to suggest hydronephrosis. IMPRESSION: 1. Cholelithiasis and hydropic gallbladder. However, no wall thickening, surrounding fluid, or sonogr aphic Joe sign to support acute cholecystitis at this time. Excessive distention may be due to fas ting state. Clinically correlate. 2. Mildly dilated bile duct at 7.3 mm. Correlate with alkaline phosphatase and bilirubin levels to ex clude biliary obstruction.
[2023-08-13] MEDS ORDERED: NALOXONE 0.4 MG/ML 1 ML VIAL IV PRN (15:02)
[2023-08-13] MEDS: HYDROmorphone 0.5 MG/0.5 ML SYRINGE IVP PRN (18:44)
[2023-08-14] MEDS: KETOROLAC 15 MG/ML 1 ML VIAL IVP PRN (02:39)
[2023-08-14] MEDS: HYDROcodone/APAP 5-325MG 1 EACH TAB PO PRN (09:29)
[2023-08-14] MEDS: SODIUM CHLORIDE 0.9% 1,000 ML IV SCH (12:05)
[2023-08-14 13:20] LABS: African American GFR (CKD) >90 (>60 ml/min/1.73 sqM); Anion Gap 8 mmol/L; Blood Urea Nitrogen 7 mg/dL (7-17); Calcium 10.2 mg/dL (8.4-10.2); Carbon Dioxide 31 mmol/L (22-30); Chloride 100 mmol/L (98-107); Glucose 111 mg/dL (74-99); LDH 189 U/L (120-246); Non-African American GFR(CKD) >90 (>60 ml/min/1.73 sqM); Potassium 5.8 mmol/L (3.5-5.1); Sodium 139 mmol/L (137-145)
[2023-08-14] MEDS: SODIUM ZIRCONIUM CYCLOSILICATE 10 GM PACKET PO ONE (15:11)
--- NOTE | 2023-08-14 15:49 | P.CONS ---
History of Present Illness - Reason for Consult Consult date: 08/14/23 LAD Requesting physician: Jose Kathleen - Chief Complaint back pain - History of Present Illness Mrs. Calixto is a 53-year-old female who we have been asked to see because of incidental finding of mediastinal and bilateral axillary lymphadenopathy. Patient came to the ER with c/o severe back pain, onset about 2 weeks ago, when she had some flulike symptoms start, back pain progressed, associated symptoms of fatigue, excessive tiredness, all over musculoskeletal aches. The pain in her back is severe, aching, stabbing, moves up and down her spine, radiates over the shoulders, she never had any pain like this before. She reports she does have some chronic MS pain secondary to rheumatoid arthritis but, this is usually managed with naproxen and supplements through her [facility]. She denies any fevers, cough, weight loss, appetite changes, night sweats. She denies any age- related cancer screenings. No personal history of cancer, no other medical history. She has a father who has prostate cancer. Platelet count 544,000, otherwise normal CBC, D-dimer elevated 1.04 calcium mildly elevated at 10.4, this reduced to 10.2 on labs today, mildly elevated LFTs, total protein elevated at 9.9. Gallbladder ultrasound reporting cholelithiasis and hydropic gallb ladder, no wall thickening or surrounding fluid, mildly dilated bile duct 7.3 mm. CTA of the chest reports no evidence for PE, aneurysm or dissection. Prominent lymph nodes and slightly enlarged lymph nodes within the mediastinal region and axillary regions bilaterally, measuring up to 1.7 cm no other adenopathy is seen, lungs are clear Review of Systems 14 point ROS is neg except as stated in HPI Past Medical History Past Medical History: Rheumatoid Arthritis (RA) History of Any Multi-Drug Resistant Organisms: None Reported Past Surgical History: No Surgical Hx Reported Additional Past Surgical History / Comment(s): Breast implant removal 05/2018 Past Anesthesia/Blood Transfusion Reactions: No Reported Reaction Past Psychological History: No Psychological Hx Reported Smoking Status: Never smoker Past Alcohol Use History: None Reported Past Drug Use History: None Reported - Past Family History Father Family Medical History: Cancer (prostate), Diabetes Mellitus Additional Family Medical History / Comment(s): DM is prominent on both sides of family Medications and Allergies Home Medications Medication Instructions Recorded Confirmed Type No Known Home Medications 08/13/23 08/13/23 History Allergies Allergy/AdvReac Type Severity Reaction Status Date / Time No Known Allergies Allergy Verified 08/13/23 12:42 Physical Exam Vitals: Vital Signs Temp Pulse Pulse Pulse Resp BP BP 08/14/23 12:10 98.0 F 68 18 111/74 08/14/23 07:45 97.9 F 95 18 127/78 08/14/23 03:25 16 08/14/23 02:00 98.1 F 82 16 135/83 08/14/23 01:14 79 16 147/68 08/13/23 21:43 88 16 151/79 08/13/23 18:44 97 18 141/67 08/13/23 16:11 94 18 129/83 Pulse Ox 08/14/23 12:10 99 08/14/23 07:45 97 08/14/23 03:25 08/14/23 02:00 97 08/14/23 01:14 99 08/13/23 21:43 97 08/13/23 18:44 99 08/13/23 16:11 99 Intake and Output 08/13/23 08/14/23 08/14/23 22:59 06:59 14:59 Other: # Voids 2 Weight 55.338 kg - Constitutional General appearance: cooperative, no acute distress, thin - EENT Eyes: anicteric sclerae, EOMI ENT: hearing grossly normal, normal oropharynx - Neck Neck: no lymphadenopathy - Respiratory Respiratory: bilateral: CTA - Cardiovascular Rhythm: regular Heart sounds: normal: S1, S2 Abnormal Heart Sounds: no systolic murmur, no diastolic murmur, no rub, no S3 Gallop, no S4 Gallop, no click, no other leg Peripheral Edema: bilateral: None - Gastrointestinal General gastrointestinal: no absent bowel sounds, no decreased bowel sounds, no distended, no hepatomegaly, no hyperactive bowel sounds, normal bowel sounds, no organomegaly, no rigid, no scaphoid, soft, no splenomegaly, no tenderness, no umbilical hernia, no ventral hernia - Integumentary Integumentary: normal - Neurologic Neurologic: CNII-XII intact - Musculoskeletal moderately deformed joint of the hands, joint swelling Musculoskeletal: strength equal bilaterally - Psychiatric Psychiatric: A&O x's 3, appropriate affect, intact judgment & insight Results CBC & Chem 7: 08/13/23 11:16 08/14/23 11:27 CT scan - chest: report reviewed US - abdomen: report reviewed Assessment and Plan (1) Axillary lymphadenopathy Current Visit: Yes Status: Acute Priority: Medium Code(s): R59.0 - LOCALIZED ENLARGED LYMPH NODES SNOMED Code(s): 172441378 (2) Mediastinal lymphadenopathy Current Visit: Yes Status: Acute Priority: Medium Code(s): R59.0 - LOCALIZED ENLARGED LYMPH NODES SNOMED Code(s): 55426773 Plan: Mediastinal and bilateral axillary lymphadenopathy-incidental finding on CT -It was explained to patient that during acute illness, superimposed on an autoimmune disease like RA, lymphadenopathy can be an expected finding. Elevated platelets and D-dimer can also be associated with inflammatory conditions such as RA and exacerbated during acute illness. H&P do not suggest that there is an underlying problem-ie lymphoma/malignancy-but, it is reasonable to do some labs and plan for a short-term follow-up with a CT scan in about 4 weeks to reassess LAD. Patient verbalized understanding and agrees with plan of care -Will contact pt with scan date and time and f/u appt with Oncologist -Inflammatory markers, rheumatoid markers, hepatitis, SPEP ordered. Doctor attests: I performed a history and physical examination of this patient, developed impression and plan of care. Discussed with dictator. I agree with dictators note, documented as a scribe.
[2023-08-14 21:06] LABS: Hepatitis A Antibody IgM Nonreactive; Hepatitis B Core IgM Nonreactive; Hepatitis B Surface Antigen Nonreactive; Hepatitis C IgG Antibody Nonreactive
[2023-08-14] MEDS: HEPARIN SODIUM,PORCINE 5,000 UNIT/ML 1 ML VIAL SQ SCH (21:07)
[2023-08-14 21:24] LABS: Rheumatoid Factor, Qnt 299 IU/mL (0-15)
[2023-08-14 23:18] LABS: Cyclic Citrullinated Pep IgG Positive (Negative)
--- NOTE | 2023-08-14 23:44 | P.HPIM ---
History of Present Illness H&P Date: 08/14/23 Chief Complaint: Generalized pain Patient is a 53-year-old female with a past medical history of rheumatoid arthritis presents to ER with complaints of back pain and generalized pain. Patient states that she had upper respiratory infection about 3 weeks ago and send she has been having generalized bodyaches and joint pains. Patient was seen in the ER and was given 6 but did not help for pain. Patient states that she still feels like flulike symptoms. Denies any fever at home. Denies any nausea or vomiting. No complaints of abdominal pain. No complaints of chest p ain or shortness of breath worsened recently. No cough or sputum production CTA chest was done in the ER due to elevated D-dimer showed no evidence of PE. Prominent lymph nodes and slightly enlarged lymph nodes within the mediastinum region and axillary region bilaterally The abnormality in the anterior mediastinum does not clearly appear to represent residual thymus as it is somewhat atypical appearance and lymphoma would potentially be in the differential. PET/CT would help further assess. No follow-up acute findings otherwise. Laboratory data showed WBC 8.3 hemoglobin 15.4 and platelets 544 D-dimer 1.04 BUN 6 and creatinine 0.46 and blood sugar 100 and calcium 10.4 Review of Systems Constitutional: Patient denies any fever or chills . Generalized weakness, fatigue and bodyaches. Occasional night sweats.. Abdomen: Patient denied any nausea or vomiting or abd. pain Cardiovascular: Patient denies any chest pain or short of breath no palpitations. Respiratory: patient denied any cough . no sputum production. No shortness of breath Neurologic: Patient denied any numbness or tingling or headache. Musculoskeletal: Complains of joint pains. Skin: Negative Psychiatric: Negative Endocrine: No heat or cold intolerance. No recent weight gain. Genitourinary: No dysuria or hematuria. All other 14 point ROS negative except the above Past Medical History Past Medical History: Rheumatoid Arthritis (RA) History of Any Multi-Drug Resistant Organisms: None Reported Additional Past Surgical History / Comment(s): Breast implant removal 05/2018 Past Anesthesia/Blood Transfusion Reactions: No Reported Reaction Smoking Status: Never smoker Past Alcohol Use History: None Reported Past Drug Use History: None Reported - Past Family History Father Family Medical History: Diabetes Mellitus Additional Family Medical History / Comment(s): DM is prominent on both sides of family Medications and Allergies Home Medications Medication Instructions Recorded Confirmed Type No Known Home Medications 08/13/23 08/13/23 History Allergies Allergy/AdvReac Type Severity Reaction Status Date / Time No Known Allergies Allergy Verified 08/13/23 12:42 Physical Exam Vitals: Vital Signs Temp Pulse Pulse Resp BP BP Pulse Ox 08/14/23 07:45 97.9 F 95 18 127/78 97 08/14/23 03:25 16 08/14/23 02:00 98.1 F 82 16 135/83 97 08/14/23 01:14 79 16 147/68 99 08/13/23 21:43 88 16 151/79 97 08/13/23 18:44 97 18 141/67 99 08/13/23 16:11 94 18 129/83 99 08/13/23 10:32 102 H 19 133/75 100 Intake and Output 08/13/23 08/14/23 08/14/23 22:59 06:59 14:59 Other: # Voids 2 Weight 55.338 kg PHYSICAL EXAMINATION: Patient is lying in the bed comfortably, no acute distress, awake alert and oriented.. HEENT: Normocephalic. Neck is supple. Pupils reactive. Nostrils clear. Oral cavity is moist. Neck reveals no JVD, carotid bruits, or thyromegaly. CHEST EXAMINATION: Trachea is central. Symmetrical expansion. Lung delgadillo clear to auscultation and percussion. CARDIAC: Normal S1, S2 with no gallops. No murmurs ABDOMEN: Soft. Bowel sounds present. Nontender. No organomegaly. No abdominal bruits. Extremities: reveal no edema. No clubbing or cyanosis Neurologically awake, alert, oriented x3 with well-coordinated movements. No focal deficits noted Skin: No rash or skin lesions. Psychiatric: Coperative. Nonsuicidal, anxious. Musculoskeletal: Patient does have bilateral hand arthritic changes due to rheumatoid arthritis. Results CBC & Chem 7: 08/13/23 11:16 08/14/23 11:27 Labs: Abnormal Lab Results - Last 24 Hours (Table) 08/13/23 08/13/23 08/13/23 Range/Units 11:16 11:16 11:16 Hct 46.3 H (34.0-46.0) % Plt Count 544 H (150-450) k/uL D-Dimer 1.04 H (<0.60) mg/L FEU BUN 6 L (7-17) mg/dL Creatinine 0.48 L (0.52-1.04) mg/dL Glucose 100 H (74-99) mg/dL Calcium 10.4 H (8.4-10.2) mg/dL AST 46 H (14-36) U/L ALT 42 H (4-34) U/L Alkaline Phosphatase 170 H (38-126) U/L Total Protein 9.9 H (6.3-8.2) g/dL Thrombosis Risk Factor Assmnt - DVT/VTE Prophylaxis DVT/VTE Prophylaxis: Pharmacologic Prophylaxis ordered - Choose All That Apply Any of the Below Risk Factors Present?: Yes Each Factor Represents 1 point: Age 41-60 years Other Risk Factors: No Other congenital or acquired thrombophilia - If yes, enter type in comment: No Thrombosis Risk Factor Assessment Total Risk Factor Score: 1 Thrombosis Risk Factor Assessment Level: Low Risk Assessment and Plan Assessment: Generalized body aches and joint pains likely exacerbated by recent viral infection with history of rheumatoid arthritis Axillary and mediastinal lymphadenopathy could be due to recent infection underlying rheumatoid arthritis. Elevated D-dimer level. CTA negative for PE. Elevated liver enzymes DVT prophylaxis with heparin subcu Plan: Patient will be continued on pain management with Toradol and Dilaudid. Patient is currently not on any medication for rheumatoid arthritis as an outpatient. Patient was seen by oncology and recommends outpatient follow-up with PET scan.Patient will need to follow-up with rheumatology as an outpatient as well. Hepatitis panel and rheumatoid arthritis serology test were ordered. Patient does not want to take any steroids. Continue with IV hydration and follow-up closely. Time with Patient: Greater than 30
[2023-08-15 00:38] LABS: HIV 2 AB Non-Reactive (Non-Reactive); HIV AB P24 Non-Reactive (Non-Reactive); HIV P24 AG Non-Reactive (Non-Reactive)
[2023-08-15 08:52] LABS: Albumin 4.2 g/dL (3.8-4.9); Protein, Total 8.3 g/dL (6.2-8.2)
[2023-08-15 13:39] VITALS: BP 141/84; PULSE 109; RESP 20; TEMP 98.4
--- NOTE | 2023-08-15 14:30 | P.PN ---
Subjective Progress Note Date: 08/15/23 Principal diagnosis: Mediastinal and bilateral axillary lymphadenopathy Patient seen today denying any complaints, no uncontrolled pain, she wants to go home. Objective - Vital Signs Vital signs: Vital Signs Temp 98.4 F 08/15/23 12:29 Pulse 109 H 08/15/23 12:29 Resp 20 08/15/23 12:29 BP 141/84 08/15/23 12:29 Pulse Ox 100 08/15/23 12:29 FiO2 Intake & Output 08/14/23 08/15/23 08/15/23 18:59 06:59 18:59 Intake Total 240 Balance 240 Intake: Oral 240 Other: # Voids 4 2 # Bowel Movements 0 - Constitutional General appearance: Present: average body habitus, cooperative, no acute distress - EENT Eyes: Present: anicteric sclerae, EOMI ENT: Present: hearing grossly normal - Respiratory Details: Respirations even and unlabored at rest - Peripheral edema leg Peripheral Edema: bilateral: None - Neurologic Neurologic: Present: CNII-XII intact (Grossly) - Musculoskeletal Musculoskeletal Comment(s): Joint deformities of the hands consistent with RA Musculoskeletal: Present: strength equal bilaterally - Psychiatric Psychiatric: Present: A&O x's 3, appropriate affect, intact judgment & insight - Labs CBC & Chem 7: 08/13/23 11:16 08/14/23 11:27 Labs: Abnormal Lab Results - Last 24 Hours (Table) 08/14/23 08/14/23 08/14/23 Range/Units 11:27 11:27 11:27 Total Protein (PEP) 8.3 H (6.2-8.2) g/dL Rheumatoid Factor 299 H (0-15) IU/mL Cycl Citrul Peptide IgG 165.0 H (<=3.9) U/mL Cyclic Citrull Peptide Positive A (Negative) Free Delta LC, Quant 5.50 H (0.33-1.94) mg/dL Free Lambda LC, Quant 2.90 H (0.57-2.63) mg/dL Assessment and Plan (1) Axillary lymphadenopathy Current Visit: Yes Status: Acute Priority: Medium Code(s): R59.0 - LOCALIZED ENLARGED LYMPH NODES SNOMED Code(s): 593347118 (2) Mediastinal lymphadenopathy Current Visit: Yes Status: Acute Priority: Medium Code(s): R59.0 - LOCALIZED ENLARGED LYMPH NODES SNOMED Code(s): 12863486 Plan: Mediastinal and bilateral axillary lymphadenopathy-incidental finding on CT -It was explained to patient that during acute illness, superimposed on an autoimmune disease like RA, lymphadenopathy can be an expected finding. Elevated platelets and D-dimer can also be associated with inflammatory conditions such as RA and exacerbated during acute illness. H&P do not suggest that there is an underlying problem-ie lymphoma/malignancy-but, it is reasonable to do some labs. HIV, acute hepatitis panel are both negative, kappa lambda light chains are elevated with a normal ratio, LDH is normal.. Rheumatoid factor elevated to 99, CCP positive, IgG CCP elevated at 165-most consistent with active rheumatoid. A few tests are still pending but, nothing acutely worrisome -Plan is for a short-term follow-up with a CT scan in about 4-6 weeks to reassess LAD. Patient verbalized understanding and agrees with plan of care -Will contact pt with scan date and time and f/u appt with Oncologist Patient is okay from a Hematology/Oncology standpoint to be discharged once she has been cleared by attending and other consulting physicians. Doctor attests: I performed a history and physical examination of this patient, developed impression and plan of care. Discussed with dictator. I agree with dictators note, documented as a scribe.
[2023-08-15 16:46] LABS: Gamma Globulin 1.97 g/dL (0.70-1.50)
--- NOTE | 2023-08-18 21:31 | P.DS ---
Providers Date of admission: 08/13/23 14:25 Expected date of discharge: 08/15/23 Attending physician: Victoria Bynum Consults: 08/13/23 15:02 Consult Physician Urgent Consulting Provider: Nataly Cedeno Consult Reason/Comments: Abnormal lymphadenopathy Do you want consulting provider notified?: Yes Primary care physician: Tonya Uli [facility] Course: Discharge diagnosis Generalized body aches and joint pains likely exacerbated by recent viral infection with history of rheumatoid arthritis. Improved with pain management. Axillary and mediastinal lymphadenopathy could be due to recent infection underlying rheumatoid arthritis. Outpatient follow-up with oncology, repeat CT in the next 4 to 6 weeks. Elevated D-dimer level. CTA negative for PE. Elevated liver enzymes DVT prophylaxis with heparin subcu Hospital course Patient is a 53-year-old female with a past medical history of rheumatoid arthritis presents to ER with complaints of back pain and generalized pain. Patient states that she had upper respiratory infection about 3 weeks ago and send she has been having generalized bodyaches and joint pains. Patient was seen in the ER and was given 6 but did not help for pain. Patient states that she still feels like flulike symptoms. Denies any fever at home. Denies any nausea or vomiting. No complaints of abdominal pain. No complaints of chest pain or shortness of breath worsened recently. No cough or sputum production CTA chest was done in the ER due to elevated D-dimer showed no evidence of PE. Prominent lymph nodes and slightly enlarged lymph nodes within the mediastinum region and axillary region bilaterally The abnormality in the anterior mediastinum does not clearly appear to represent residual thymus as it is somewhat atypical appearance and lymphoma would potentially be in the differential. PET/CT would help further assess. No follow-up acute findings otherwise. Laboratory data showed WBC 8.3 hemoglobin 15.4 and platelets 544 D-dimer 1.04 BUN 6 and creatinine 0.46 and blood sugar 100 and calcium 10.4 08/15/2023 Patient is currently resting in bed. Awake alert and oriented x 3. No complaints of chest pain or shortness of breath. Joint pain is much improved. No chest pain or shortness of breath. No palpitations. No headache or dizziness or lightheadedness. Patient had laboratory tests done yesterday showed potassium level 5.8. Patient was given Lokelma. Patient is refusing to get another lab test. Patient was seen by oncology due to bilateral axillary lymphadenopathy and recommends outpatient follow-up with repeat CT scan in 4 to 6 weeks. Follow-up information has been provided. Cleared from hematology standpoint otherwise. Patient was also advised to follow-up with hematology as an outpatient. Patient would like to be discharged home. PHYSICAL EXAMINATION: Patient is lying in the bed comfortably, no acute distress, awake alert and oriented.. HEENT: Normocephalic. Neck is supple. Pupils reactive. Nostrils clear. Oral cavity is moist. Neck reveals no JVD, carotid bruits, or thyromegaly. CHEST EXAMINATION: Trachea is central. Symmetrical expansion. Lung delgadillo clear to auscultation and percussion. CARDIAC: Normal S1, S2 with no gallops. No murmurs ABDOMEN: Soft. Bowel sounds present. Nontender. No organomegaly. No abdominal bruits. Extremities: reveal no edema. No clubbing or cyanosis Neurologically awake, alert, oriented x3 with well-coordinated movements. No focal deficits noted Skin: No rash or skin lesions. Psychiatric: Coperative. Nonsuicidal, anxious. Musculoskeletal: Patient does have bilateral hand arthritic changes due to rheumatoid arthritis. Vital signs: Vital Signs Temp 98.4 F 08/15/23 12:29 Pulse 109 H 08/15/23 12:29 Resp 20 08/15/23 12:29 BP 141/84 08/15/23 12:29 Pulse Ox 100 08/15/23 12:29 FiO2 Intake & Output 08/14/23 08/15/23 08/15/23 18:59 06:59 18:59 Intake Total 240 Balance 240 Intake: Oral 240 Other: # Voids 4 2 # Bowel Movements 0 Patient Condition at Discharge: Fair Plan - Discharge Summary New Discharge Prescriptions: New HYDROcodone/APAP 5-325MG [[place] 5-325] 1 tab PO Q6HR PRN 3 Days #12 tab PRN Reason: Pain Discharge Medication List HYDROcodone/APAP 5-325MG [[place] 5-325] 1 tab PO Q6HR PRN 3 Days #12 tab 08/15/23 [Rx] Follow up Appointment(s)/Referral(s): Nataly Cedeno MD [STAFF PHYSICIAN] - 6 Weeks (Will call pt with scan appt date and time and f/u with MD for results) Barbie North MD [STAFF PHYSICIAN] - 3 Days (Please call office and establish care with this PCP.) Radha Zaidi MD [STAFF PHYSICIAN] - 1 Week (The office is closed please call friday to schedule your follow up appoinment.) Discharge Disposition: HOME SELF-CARE
== END 2023-08-15 15:36 | disposition home or self-care (01) ==
LOC: EC 09:46 → 6NMEDSUR 14:25 → 5NMEDONC 08-14 01:09
PROVIDERS: ADMIT Internal Medicine; ATTEND Internal Medicine
DX: R59.0 Localized enlarged lymph nodes (principal); M54.50 Low back pain, unspecified; M25.50 Pain in unspecified joint; M06.9 Rheumatoid arthritis, unspecified; R79.89 Other specified abnormal findings of blood chemistry; R74.8 Abnormal levels of other serum enzymes; Z20.822 Contact with and (suspected) exposure to COVID-19
CPT/HCPCS: 96376 ×4; 96375 ×2; 96361; 96374; 99285; 36415; 93005; 85379; 80053; 80048; 80074; 83615; 83735; 84484; 85025; 86140; 86431; 84165; 86038; 87390; 86334; 83883; 86200; 87636; 76705; 71275; G0378 ×3; J1885 ×2; J1170 ×3; Q9967